=== PATIENT | female | born 1940 | race Hispanic/Latino ===

== ENCOUNTER → 2017-08-14 | Outpatient (CLI) | payer OTHER ==
[~2017-08-14] MED LIST: AMLO5TAB2 PO; ANAG.5 PO; LEVO112T4 PO; RALO60TA PO; TELM80TA2 PO
== END | disposition home or self-care (01) ==
LOC: OIH 14:29
PROVIDERS: ATTEND Internal Medicine
DX: S93.601A Unspecified sprain of right foot, initial encounter (principal); M79.89 Other specified soft tissue disorders; M85.871 Other specified disorders of bone density and structure, right ankle and foot; M77.31 Calcaneal spur, right foot; X58.XXXA Exposure to other specified factors, initial encounter; Y93.89 Activity, other specified; Y92.89 Other specified places as the place of occurrence of the external cause; Y99.8 Other external cause status
CPT/HCPCS: 73620

== ENCOUNTER → 2019-06-02 | Outpatient (CLI) | payer OTHER ==
[~2019-06-02] MED LIST changes: +ALBUTEROL SULFATE 0.083% 2.5 MG/3 ML INH IH ONE; -AMLO5TAB2 PO; +AMLO5TAB9 PO
== END | disposition home or self-care (01) ==
LOC: RESP 12:51 → EDUNIT# 12:51
PROVIDERS: ATTEND Internal Medicine
DX: J44.9 Chronic obstructive pulmonary disease, unspecified (principal)
CPT/HCPCS: 94060; 94727; 94729

== ENCOUNTER → 2020-07-03 | Outpatient (CLI) | payer OTHER ==
[~2020-07-03] MED LIST changes: -ALBUTEROL SULFATE 0.083% 2.5 MG/3 ML INH IH ONE; +AMLO-257 PO; -AMLO5TAB9 PO
== END | disposition home or self-care (01) ==
LOC: OIH 10:33
PROVIDERS: ATTEND Internal Medicine
DX: J98.11 Atelectasis (principal); M47.815 Spondylosis without myelopathy or radiculopathy, thoracolumbar region; M48.02 Spinal stenosis, cervical region
CPT/HCPCS: 71046; 72040

== ENCOUNTER → 2021-03-23 | Outpatient (CLI) | payer MEDICARE | END | disposition home or self-care (01) | LOC: RAH 09:06 | PROVIDERS: ATTEND Internal Medicine | DX: N28.1 Cyst of kidney, acquired (principal); Z90.49 Acquired absence of other specified parts of digestive tract | CPT/HCPCS: 74176 ==

== ENCOUNTER → 2021-09-13 | Outpatient (CLI) | payer MEDICARE | END | disposition home or self-care (01) | LOC: OIH 10:52 | PROVIDERS: ATTEND Internal Medicine | DX: S32.19XA Other fracture of sacrum, initial encounter for closed fracture (principal); M53.3 Sacrococcygeal disorders, not elsewhere classified; X58.XXXA Exposure to other specified factors, initial encounter; Y93.89 Activity, other specified; Y92.89 Other specified places as the place of occurrence of the external cause; Y99.8 Other external cause status | CPT/HCPCS: 72220 ==

== ENCOUNTER 2022-02-02 19:33 | Emergency (ER) | payer MEDICARE ==
[~2022-02-02] VITALS: Ht 157.5 cm; Wt 60.8 kg
[2022-02-02 20:13] LABS: APPEARANCE,URINE CLEAR (CLEAR); BILIRUBIN,URINE NEGATIVE (NEGATIVE); COLOR,URINE YELLOW (YELLOW); GLUCOSE, URINE (UA) NEGATIVE (NEGATIVE); KETONES,URINE NEGATIVE (NEGATIVE); LEUKOCYTE ESTERASE ,URINE TRACE (NEGATIVE); NITRATE,URINE NEGATIVE (NEGATIVE); OCCULT BLOOD,URINE NEGATIVE (NEGATIVE); PH,URINE 5.5 (5.0-8.0); PROTEIN,URINE 100 mg/dL (NEGATIVE); UROBILINOGEN,URINE 0.2 mg/dL (0.2-1.0)
[2022-02-02 20:14] LABS: BASOPHILS % (AUTO) 0.8 % (0.0-5.0); EOSINOPHILS % (AUTO) 0.7 % (0.0-8.0); HEMATOCRIT 32.6 % (36-48); LYMPHOCYTES % (AUTO) 5.2 % (21.0-51.0); MEAN CORPUSCULAR HEMOGLOBIN 29.9 pg (27.0-33.0); MEAN CORPUSCULAR HGB CONC 33.4 g/dL (32.0-36.0); MEAN CORPUSCULAR VOLUME 89.6 fL (79-99); NEUTROPHILS % (AUTO) 85.1 % (40.0-77.0); NUCLEATED RED BLOOD CELLS 0.1 % (0.0-0.19); PLATELET COUNT (AUTO) 565 K/uL (130-400); RED BLOOD CELL COUNT(AUTO) 3.64 MIL/uL (4.00-5.50); RED CELL DISTRIBUTION WIDTH 17.5 % (11.0-15.5)
[2022-02-02 20:17] LABS: BACTERIA,URINE Few /HPF (None Seen); RBC,URINE 0-1 /HPF (0-1)
[2022-02-02 20:18] LABS: SQUAMOUS EPITHELIAL CELL,UR Rare /HPF (0-2)
[2022-02-02 20:23] LABS: WHITE BLOOD COUNT (AUTO) 33.4 K/uL (4.8-10.8)
[2022-02-02] MEDS ORDERED: ONDANSETRON 4MG INJ ONE (20:25)
[2022-02-02 20:39] LABS: ALBUMIN 3.8 g/dL (3.5-5.0); BILIRUBIN,TOTAL 0.4 mg/dL (0.2-1.0); CREATININE 1.8 mg/dL (0.5-1.5)
[2022-02-02 20:42] LABS: BAND NEUTROPHILS % (MANUAL) 18 % (0-2); LYMPHOCYTES % (MANUAL) 4 % (22-44); MONOCYTES % (MANUAL) 1 % (2-9); REACTIVE LYMPHOCYTES 1 % (0-0); SEGMENTED NEUTROPHILS % 76 % (40-70)
[2022-02-02 20:43] LABS: MAN.DIFF COMMENT-IMPRESSION MANUAL DIFFERENTIAL
[2022-02-02 20:45] LABS: PLATELET MORPHOLOGY COMMENT LARGE PLTS PRESENT
[2022-02-02 22:02] VITALS: BP 139/72
== END 2022-02-02 22:27 | disposition home or self-care (01) ==
LOC: EDH 19:33
DX: R10.33 Periumbilical pain (principal); I10 Essential (primary) hypertension; E03.9 Hypothyroidism, unspecified; Z90.49 Acquired absence of other specified parts of digestive tract; Z88.2 Allergy status to sulfonamides; Z79.899 Other long term (current) drug therapy; Z98.890 Other specified postprocedural states
CPT/HCPCS: 36415; 74176; 80053; 81001; 82150; 83605; 83690; 84484; 85025; 93005; 96374; 99285; J2405

== ENCOUNTER → 2023-12-22 | Outpatient (CLI) | payer MEDICARE ==
[~2023-12-22] MED LIST changes: +ALLO100T PO; -AMLO-257 PO; +AMLO-258 PO; -ANAG.5 PO; +ANAG1CAP11 PO; +CHOL100040 PO; +FOLI1TAB85 PO; +FURO20TA4 PO; -RALO60TA PO; +RALO60TA13 PO; +SODI650T PO; +TELM80TA10 PO; -TELM80TA2 PO
== END | disposition home or self-care (01) ==
LOC: RAH 15:13
PROVIDERS: ATTEND Internal Medicine
DX: M47.814 Spondylosis without myelopathy or radiculopathy, thoracic region (principal); M54.89 Other dorsalgia
CPT/HCPCS: 72070

== ENCOUNTER → 2024-04-23 | Outpatient (CLI) | payer MEDICARE | END | disposition home or self-care (01) | LOC: RAH 08:34 | PROVIDERS: ATTEND Internal Medicine Gastroenterology | DX: K21.9 Gastro-esophageal reflux disease without esophagitis (principal); E61.1 Iron deficiency | CPT/HCPCS: 74240 ==

== ENCOUNTER → 2024-06-30 | Outpatient (CLI) | payer MEDICARE ==
--- NOTE | 2024-06-30 16:32 | HMCSR ---
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 (R) 88.3cm/sec, Biphasic, Prof Fem Art. (L) 79.9cm/sec, Biphasic, Fem Art Prox. (R) 196.0cm/sec, Triphasic, Fem Art Prox. (L) 162.7cm/sec, Triphasic, Fem Art Mid. (R) 171.2cm/sec, Triphasic, Mild < 50% Fem Art Mid. (L) 170.0cm/sec, Biphasic, Fem Art Dist (R) 185.0cm/sec, Triphasic, Fem Art Dist. (L) 177.6cm/sec, Biphasic, Mild < 50% Pop Art(AK) (R) 89.1cm/sec, Biphasic, Pop Art (AK) (L) 162.4cm/sec, Biphasic, Pop Art(BK) (R) 79.9cm/sec, Biphasic, Pop Art (BK) (L) 91.1cm/sec, Biphasic, NARROW FABRICS WEAVER Prox. (R) 31.3cm/sec, Monophasic, NARROW FABRICS WEAVER Prox. (L) 69.0cm/sec, Biphasic, NARROW FABRICS WEAVER Mid. (R) cm/sec, Occluded, NARROW FABRICS WEAVER Mid. (L) 129.8cm/sec, Biphasic, NARROW FABRICS WEAVER Dist. (R) cm/sec, Occluded, NARROW FABRICS WEAVER Dist. (L) 114.6cm/sec, Biphasic, Per Art Dist. (R) 45.2cm/sec, Biphasic, Per Art Dist. (L) 52.5cm/sec, Biphasic, KIERA Prox. (R) 71.8cm/sec, Biphasic, KIERA Prox. (L) 76.9cm/sec, Biphasic, KIERA Mid. (R) 150.7cm/sec, Biphasic Mild < 50% KIERA Mid. (L) 61.5cm/sec, Triphasic, KIERA Dist. (R) 45.2cm/sec, Biphasic, KIERA Dist. (L) 174.3cm/sec, Biphasic, Mild < 50% Technologist Impression Diffuse atherosclerosis throughout the bilateral lower extremities. There is evidence of mild stenosis in the right femoral artery and the right anterior tibial artery. There is evidence of mild stenosis in the left femoral artery and the left anterior tibial artery. Conclusion Diffuse atherosclerosis throughout the bilateral lower extremities. There is evidence of mild stenosis in the right femoral artery and the right anterior tibial artery. There is evidence of mild stenosis in the left femoral artery and the left anterior tibial artery. Conclusion Diffuse atherosclerosis throughout the bilateral lower extremities. There is evidence of mild stenosis in the right femoral artery and the right anterior tibial artery. There is evidence of mild stenosis in the left femoral artery and the left anterior tibial artery.
== END | disposition home or self-care (01) ==
LOC: SHCH 15:12
PROVIDERS: ATTEND Student in an Organized Health Care Education/Training Program
DX: I70.293 Other atherosclerosis of native arteries of extremities, bilateral legs (principal); I70.90 Unspecified atherosclerosis
CPT/HCPCS: 93925

== ENCOUNTER → 2024-11-23 | Outpatient (CLI) | payer MEDICARE ==
--- NOTE | 2024-11-23 12:11 | HMCIMG ---
CT NONCONTRAST CHEST Comparison Study: none History: Other forms of dyspnea Technique: Helical CT of the chest without IV contrast at 5 mm collimation. Coronal and sagittal reformations also done. CT Dose Index (CTDI): 2.38 mGy Dose Length Product (DLP): 94.8 total mGy-cm Findings: The airway is intact. The trachea and major bronchi are unremarkable. The chest exam shows no pulmonary nodules or masses. No significant pulmonary parenchymal abnormalities are noted except for minimal bullous emphysematous changes. No pulmonary infiltrates or mass lesions are seen. Bilateral small pleural effusions. There is no pneumothorax. There is no evidence of pneumomediastinum. The nonenhanced exam of the andi and mediastinum is unremarkable. No evidence of hilar enlargement is seen. The aorta shows no aneurysmal dilatation or significant atheromatous calcification. No significant brachiocephalic vascular abnormalities are seen. The heart is unremarkable. It is not enlarged. No significant coronary arterial calcifications are seen. There is no pericardial effusion. The rib cage appears unremarkable. The soft tissues of the chest wall are unremarkable. The dorsal spine shows no significant abnormalities. IMPRESSION: Bilateral small pleural effusions. Minimal bullous emphysema changes. This study was performed using dose reduction techniques to include automated exposure control and/or adjustment of the mA and/or kV according to patient size.
== END | disposition home or self-care (01) ==
LOC: RAH 11:14
PROVIDERS: ATTEND Student in an Organized Health Care Education/Training Program
DX: J90 Pleural effusion, not elsewhere classified (principal); R06.09 Other forms of dyspnea
CPT/HCPCS: 71250

== ENCOUNTER → 2024-11-27 | Outpatient (CLI) | payer MEDICARE ==
--- NOTE | 2024-12-08 12:09 | HMCSR ---
APPROVED REPORT EXAM: Two-dimensional and M-mode echocardiogram with Doppler and color Doppler. Study Details: Hx: Cancer INDICATION ICD: R06.09 Other forms of dyspnea 2D Dimensions RVDd4.8 cmLVEF(%)50.6 (>50%)LVED Vol(simp.)87.0 mL IVSd1.0 (0.7-1.1cm)FS(%)26 %LVES Vol(simp.)34.0 mL LVDd4.6 (3.8-5.6cm)LA (2D)4.1 (1.6-4.0cm)LVEF(%, simp.)61 % PWd1.1 (0.7-1.1cm)Ao Root(2D)2.2 (2.0-3.7cm)LA ESV INDEX (BP)69.55 mL/m2 IVSs1.2 cmLVOT diam1.9 (1.8-2.4cm) LVDs3.4 (2.5-4.0cm)IVC diam1.8 cm PWs1.6 cm Deformation Strain Apical 4-17.6 % Apical 2-15.7 % Apical 3-17.0 % Global Strain-16.8 % M-Mode Dimensions EPSS1.4 cm LA (MM)4.1 (1.6-4.0cm) Ao Root(MM)2.6 (2.0-3.7cm) Aortic Valve AoV Vmax1.5 m/Sumit Peak GR8.9 mmHgLVOT Vmax1.2 m/s AoV VTI0.4 mAo Mean GR4.8 mmHgLVOT VTI0.26 m MATTHEW (VMAX)2.05 cm2AVA (VTI) 2.1 cm2 Mitral Valve MV E Qqex146.3 cm/sDECEL Ahix220 ms MV A Eevg064.2 cm/sP 1/2 T56 ms E/A ratio1.1MVA (PHT)4.0 cm2 TDI E/E' Hejqxs29.6E/E' Zmokcro75.4 Medial E' Peak V4.16 cm/sLateral E' Peak V3.52 cm/s Pulmonary Valve PV Vmax0.9 m/sPV Mean GR2.1 mmHg PV Peak GR3.4 mmHg Tricuspid Valve TR Vmax3.5 m/sRAP (EST) 3 zzBhAPVO65.4 mmHg TR Peak GR48.4 mmHg Left Ventricle The left ventricle is normal size. There is normal left ventricular wall thickness. LVEF is 60-65%. S tage II, diastolic dysfunction. Right Ventricle The right ventricle is moderately dilated. The right ventricular systolic function is normal. Atria The left atrium is severely dilated. LASVI 70mL/m. The right atrium is borderline dilated. Aortic Valve Aortic valve is trileaflet and opens well. No aortic regurgitation is present. There is no aortic mary vular stenosis. Mitral Valve The mitral valve is mildly thickened but open well. There is mitral annular calcification. There is m ild mitral valve regurgitation noted. There is no mitral valve stenosis. Tricuspid Valve The tricuspid valve is normal in structure. There is moderate tricuspid valve regurgitation noted. RV SP mm HG. Pulmonic Valve The pulmonary valve is normal in structure. There is trace of pulmonic valvular regurgitation. Great Vessels The aortic root is normal in size. The IVC is normal in size and collapses >50% with inspiration. Pericardium There is no pericardial effusion. Left pleural effusion. Other Information Quality : Adequate Conclusion The left ventricle is normal size. LVEF is 60-65%. Stage II, diastolic dysfunction. The right ventricle is moderately dilated. The right ventricular systolic function is normal. The left atrium is severely dilated. LASVI 70mL/m. The right atrium is borderline dilated. There is mild mitral valve regurgitation noted. There is moderate tricuspid valve regurgitation noted. RVSP 49 mm Hg. There is no pericardial effusion. Left pleural effusion.
== END | disposition home or self-care (01) ==
LOC: SHCH 12:47
PROVIDERS: ATTEND Student in an Organized Health Care Education/Training Program
DX: I08.1 Rheumatic disorders of both mitral and tricuspid valves (principal); J90 Pleural effusion, not elsewhere classified; I13.11 Hypertensive heart and chronic kidney disease without heart failure, with stage 5 chronic kidney disease, or end stage renal disease; E11.22 Type 2 diabetes mellitus with diabetic chronic kidney disease; N18.6 End stage renal disease; R06.09 Other forms of dyspnea
CPT/HCPCS: 93306; 93356

== ENCOUNTER → 2025-02-28 | Outpatient (CLI) | payer MEDICARE ==
--- NOTE | 2025-02-28 16:50 | HMCIMG ---
EXAM: CT Abdomen and Pelvis without Intravenous Contrast CLINICAL HISTORY: 84-year-old female with unspecified abdomen pain TECHNIQUE: Axial computed tomography images of the abdomen and pelvis without intravenous contrast. Dose reduction technique was used including one or more of the following: automated exposure control, adjustment of mA and kV according to patient size, and/or iterative reconstruction. CONTRAST: Without; COMPARISON: None provided. FINDINGS: LUNG BASES: Patchy infiltrates in the left lower lobe and right lower lobe atelectasis suggest pneumonia. Small bilateral pleural effusions are present. LIVER: Unremarkable. GALLBLADDER AND BILE DUCTS: Unremarkable. No calcified stone. No ductal dilation. PANCREAS: Unremarkable. SPLEEN: Mild splenomegaly. ADRENAL GLANDS: Unremarkable. KIDNEYS, URETERS, AND BLADDER: Unremarkable. No hydronephrosis or nephrolithiasis. No ureteral or bladder calculi. STOMACH AND BOWEL: No obstruction. No wall thickening. No CT evidence of colitis or acute diverticulitis. APPENDIX: No CT evidence for appendicitis. PERITONEUM: No free fluid. No free air. LYMPH NODES: No lymphadenopathy. REPRODUCTIVE: Uterus and adnexa unremarkable. VASCULATURE: No aortic aneurysm. Atherosclerotic aorta. Pericardial effusion. Extensive mesenteric artery calcifications seen. ABDOMINAL WALL AND SOFT TISSUES: Unremarkable. BONES: There are diffuse sclerotic changes throughout the bones, question renal osteodystrophy changes correlate with clinical laboratory data. 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 No fracture or suspicious osseous abnormality. IMPRESSION: 1. Patchy infiltrates in the left lower lobe and right lower lobe with atelectasis, suggestive of pneumonia. 2. Small bilateral pleural effusions. 3. Mild splenomegaly. 4. Atherosclerotic aorta with extensive mesenteric artery calcifications. 5. Pericardial effusion. 6. Diffuse sclerotic changes throughout the bones, question renal osteodystrophy changes. Correlate with clinical laboratory data. /[place]
== END | disposition home or self-care (01) ==
LOC: RAH 14:21
PROVIDERS: ATTEND Internal Medicine
DX: J90 Pleural effusion, not elsewhere classified (principal); I31.39 Other pericardial effusion (noninflammatory); R16.1 Splenomegaly, not elsewhere classified; I70.0 Atherosclerosis of aorta; J98.11 Atelectasis; C50.919 Malignant neoplasm of unspecified site of unspecified female breast; R10.9 Unspecified abdominal pain; E61.1 Iron deficiency; R93.2 Abnormal findings on diagnostic imaging of liver and biliary tract
CPT/HCPCS: 74176